=== PATIENT | female | born 1995 | race African-American/Black ===

== ENCOUNTER 2018-09-12 01:11 | Emergency (ER) | payer MEDICAID ==
[~2018-09-12] VITALS: Ht 160 cm; Wt 47.6 kg
[2018-09-12 01:16] VITALS: BP 121/77
--- NOTE | 2018-09-12 01:50 | NUR ---
PT AMBULATED TO BED #8
--- NOTE | 2018-09-12 02:20 | NUR ---
23 YO F BIB SELF PRESENTS TO ED C/O 09/01 SHARP RIGHT SIDE CHEST PAIN AND SOB SINCE THURSDAY. PT DENIES DIZZINESS, NVD, LIGHT HEADEDNESS, COUGH, RECENT INJURY OR RECENT ILLNESS. PT DENIES ALCOHOL OR RECREATIONAL DRUG USE. -- PT AWAKE, ALERT, CALM, COOPERATIVE. ANSWERS QUESTIONS APPROPRIATELY. PT IS PLAYING ON PHONE. -- SKIN NORMAL, WARM, DRY. BREATHING EVEN, UNLABORED. LUNGS CTA. SPO2 100% ON RA. NO INCREASED WOB NOTED. PMH-- DENIES RX-- DENIES
--- NOTE | 2018-09-12 02:50 | NUR ---
PT TAKEN TO XRAY VIA WC.
--- NOTE | 2018-09-12 02:57 | NUR ---
PT RETURNED FROM XRAY.
[2018-09-12 03:02] LABS: HEMOGLOBIN 12.6 g/dL (12.0-16.0); MEAN CORPUSCULAR HEMOGLOBIN 31 pg (27-31); MEAN CORPUSCULAR HGB CONC 34 g/dL (33-37); MEAN CORPUSCULAR VOLUME 92.5 fL (80-94); PLATELET COUNT (AUTO) 193 K/uL (140-450); RED CELL DISTRIBUTION WIDTH 13.1 % (11.6-13.7); WHITE BLOOD COUNT (AUTO) 3.8 K/uL (4.8-10.8)
[2018-09-12 03:10] LABS: ANION GAP 8.1 (8-16); CARBON DIOXIDE 27.8 mmol/L (21-32); CREATININE 0.8 mg/dL (0.6-1.3); POTASSIUM 3.9 mmol/L (3.5-5.1)
[2018-09-12 03:13] LABS: EOSINOPHILS % (MANUAL) 4 % (0-4); LYMPHOCYTES % (MANUAL) 53 % (20-46); MONOCYTES % (MANUAL) 3 % (5-12)
[2018-09-12 03:15] LABS: ALBUMIN 3.3 g/dL (3.4-5.0); TOTAL BILIRUBIN 0.3 mg/dL (0.0-1.0)
--- NOTE | 2018-09-12 03:51 | NUR ---
pt ambulated to bathroom
[2018-09-12] MEDS ORDERED: FAMOTIDINE 20 MG TAB PO ONE (04:10)
[2018-09-12] MEDS ORDERED: ALUMINUM HYD/MAG/SIMETHICONE 30 ML UDC PO ONE (04:10)
[2018-09-12] MEDS ORDERED: LIDOCAINE VISCOUS 2% 20 ML UDC PO ONE (04:10)
--- NOTE | 2018-09-12 04:30 | NUR ---
PT STATES SHE FEELS BETTER. DENIES SOB AT THIS TIME. REPORTS 2/10 CHEST DISCOMFORT.
[2018-09-12 04:45] VITALS: BP 113/76
--- NOTE | 2018-09-12 04:45 | NUR ---
Patient discharged with v/s stable. Written and verbal after care instructions given and explained. Patient verbalized understanding. Ambulatory with steady gait. All questions addressed prior to discharge. Advised to follow up with PMD.
== END 2018-09-12 04:45 | disposition home or self-care (01) ==
LOC: MED 01:11
DX: R07.89 Other chest pain (principal); R06.02 Shortness of breath
CPT/HCPCS: 36415; 71046; 80053; 81025; 83690; 85025; 93005; 99284; Q0092; 10080; 96372

== ENCOUNTER 2019-10-25 17:10 | Emergency (ER) | payer MEDICAID ==
[~2019-10-25] VITALS: Ht 157.5 cm; Wt 45.4 kg
[2019-10-25 17:23] VITALS: BP 103/78
--- NOTE | 2019-10-25 17:30 | NUR ---
PT C/O ASHLYN EYE REDNESS SINCE YESTERDAY AND WORSENED TODAY S/P EYELASH EXTENSIONS ON LAST THURSDAY. PT DENIES ITCHINESS, PAIN, TEARING, OR BLURRY VISION, BUT FOREIGN BODY SENSATION ON THE RT EYE. PT ALSO DENIES COUGH, LIFTING HEAVY STUFF, CONSTIPATION. DENIES ANY COVID-19 RELATED SX OR SICK CONTACTS. REPORTS 16 WEEKS OF . DELIO: 04/12/2020, A0. OS:20/20 OD: 20/20 OU: 20/20
[2019-10-25] MEDS ORDERED: DOPPLER MC ONE ×3 (17:37→17:53)
[2019-10-25] MEDS ORDERED: TETRACAINE HCL/PF 0.5% OPTH 4 ML BTL OP ONE (17:50)
[2019-10-25] MEDS ORDERED: FLUORESCEIN OPTH STRIP 1 MG OP ONE (17:50)
[2019-10-25] MEDS ORDERED: BACITRACIN OINT 500 UNITS/GM PKT TP ONE ×2 (18:14→18:15)
[2019-10-25 18:39] VITALS: BP 101/75
--- NOTE | 2019-10-25 18:39 | NUR ---
Patient discharged with v/s stable. Written and verbal after care instructions given and explained. Patient alert, oriented and verbalized understanding of instructions. Ambulatory with steady gait. All questions addressed prior to discharge. ID band removed. Patient advised to follow up with PMD. Rx of ERYTHROMYCIN OINTMENT given. Patient educated on indication of medication including possible reaction and side effects. Opportunity to ask questions provided and answered.
== END 2019-10-25 18:39 | disposition home or self-care (01) ==
LOC: MED 17:10
DX: S05.01XA Injury of conjunctiva and corneal abrasion without foreign body, right eye, initial encounter (principal); H11.32 Conjunctival hemorrhage, left eye; X58.XXXA Exposure to other specified factors, initial encounter; Y93.89 Activity, other specified; Y92.89 Other specified places as the place of occurrence of the external cause; Y99.8 Other external cause status
CPT/HCPCS: 99283; 99284

== ENCOUNTER 2020-10-19 20:04 | Emergency (ER) | payer MEDICAID ==
[~2020-10-19] VITALS: Ht 160 cm; Wt 49.9 kg
[2020-10-19 20:15] VITALS: BP 116/73
--- NOTE | 2020-10-19 20:15 | NUR ---
TO BED AMBULATORY
--- NOTE | 2020-10-19 20:32 | NUR ---
25 YO/F BIB SELF W CO CONSTANT LOWER ABDOMINAL/PELVIC SHARP PAIN /10 WORSENS W TOUCH OR PRESSURE AND HEAVY BLEEDING W CLOTS S/P TAKING MEDICATION X10 DAYS FOR . PATIENT REPORTS BLEEDING STARTED LIGHTLY BUT BECAME HEAVY TODAY W BLOOD CLOTS SINCE 1830, REPORTS SOAKING X1 PAD AN HOUR W BLOOD. PATIENT DENIES DIZZINESS, N/V, OR URINARY PROBLEMS. LMP 08/25/20. BOWEL SOUNDS PRESENT, ABDOMEN TENDER TO TOUCH. PATIENT LAYING IN BED, HOB ELEVATED, BED LOCKED IN LOWEST POSITION, X1 SIDERAIL UP. BREATHING EVEN AND UNLABORED. NAD NOTED, WILL CONTINUE TO MONITOR. PMH:DENIES NKA
--- NOTE | 2020-10-19 20:51 | NUR ---
Patient being evaluated by physician at bedside.
[2020-10-19] MEDS ORDERED: MORPHINE SULFATE 4 MG/ML SYR IVP ONE (20:55)
--- NOTE | 2020-10-19 21:05 | NUR ---
PATIENT REPORTS SHE IS DRIVING. ERMD MADE AWARE FOR CHANGE OF ORDER OF MORPHINE FOR PAIN. PATIENT DENIES NAUSEA AND REFUSED ZOFRAN AT THIS TIME.
--- NOTE | 2020-10-19 21:14 | NUR ---
US AT BEDSIDE.
--- NOTE | 2020-10-19 21:20 | NUR ---
ULTRASOUND AT BEDSIDE.
[2020-10-19 21:21] LABS: BASOPHILS % (AUTO) 0.3 % (0.0-2.0); EOSINOPHILS # (AUTO) 0.1 K/uL (0-0.4); EOSINOPHILS % (AUTO) 1.8 % (0.0-4.0); HEMOGLOBIN 10.2 g/dL (12.0-16.0); LYMPHOCYTES # (AUTO) 1.4 K/uL (2.5-16.5); LYMPHOCYTES % (AUTO) 19.6 % (20.5-51.1); MEAN CORPUSCULAR HEMOGLOBIN 28 pg (27-31); MEAN CORPUSCULAR HGB CONC 33 g/dL (33-37); MEAN CORPUSCULAR VOLUME 86.7 fL (80-94); MONOCYTES # (AUTO) 0.3 K/uL (0.8-1.0); MONOCYTES % (AUTO) 4.5 % (1.7-9.3); NEUTROPHILS # (AUTO) 5.4 K/uL (1.8-7.7); NEUTROPHILS % (AUTO) 73.8 % (42.2-75.2); PLATELET COUNT (AUTO) 304 K/uL (140-450); RED BLOOD CELL COUNT(AUTO) 3.57 MIL/uL (4.20-5.40); RED CELL DISTRIBUTION WIDTH 15.9 % (11.6-13.7); WHITE BLOOD COUNT (AUTO) 7.2 K/uL (4.8-10.8)
[2020-10-19] MEDS: KETOROLAC 30 MG/ML VIAL IVP ONE (21:31)
[2020-10-19] MEDS: NACL 0.9% 1,000 ML IV ONE (21:31)
[2020-10-19] MEDS: ONDANSETRON 4 MG/2 ML VIAL IVP ONE (21:32)
[2020-10-19 21:35] LABS: BILIRUBIN,URINE NEGATIVE (NEGATIVE); BLOOD, URINE 3+ (NEGATIVE); LEUKOCYTE ESTERASE ,URINE 1+ (NEGATIVE); NITRITE, URINE NEGATIVE (NEGATIVE); PH,URINE 8.5 (5.0-9.0); UGLUCOSE NEGATIVE (NEGATIVE)
[2020-10-19 21:37] LABS: PROTHROMBIN TIME 10.1 secs (10.8-13.4)
[2020-10-19 21:37] LABS: APPEARANCE,URINE BLOODY (CLEAR); COLOR,URINE RED (YELLOW)
[2020-10-19 21:38] LABS: ALBUMIN 3.7 g/dL (3.4-5.0); ANION GAP 10.2 (8-16); CARBON DIOXIDE 27.5 mmol/L (21-32); CREATININE 0.7 mg/dL (0.6-1.3); POTASSIUM 3.7 mmol/L (3.5-5.1); TOTAL BILIRUBIN 0.4 mg/dL (0.0-1.0)
[2020-10-19 21:38] LABS: RBC,URINE TOO NUMEROUS TO COUN /HPF (0-5)
--- NOTE | 2020-10-19 22:30 | NUR ---
PATIENT REPORTS PAIN IMPROVEMENT TO 6/10 .
[2020-10-19] MEDS ORDERED: NAPR-54 PO (22:37)
[2020-10-19 22:48] VITALS: BP 113/72
--- NOTE | 2020-10-19 22:48 | NUR ---
Patient discharged with v/s stable BY . Written and verbal after care instructions given and explained BY . Patient alert, oriented and verbalized understanding of instructions. Ambulatory with steady gait. All questions addressed prior to discharge BY . ID band removed. Patient advised to follow up with PMD. Rx of NAPROXEN given BY . Patient educated on indication of medication including possible reaction and side effects BY . Opportunity to ask questions provided and answered BY .
== END 2020-10-19 22:48 | disposition home or self-care (01) ==
LOC: MED 20:04
DX: O03.9 Complete or unspecified spontaneous abortion without complication (principal); Z3A.01 Less than 8 weeks gestation of pregnancy
CPT/HCPCS: 36415; 76856; 80053; 81001; 85025; 85610; 85730; 86900; 86901; 87086; 96361; 96374; 99284; J1885; J7030; 96375; J2270; J2405; Q0092

== ENCOUNTER 2022-10-12 06:22 | Emergency (ER) | payer MEDICAID ==
[~2022-10-12] VITALS: Ht 160 cm; Wt 49.9 kg
[~2022-10-12 06:22] MED LIST: NAPR-54 PO
[2022-10-12 06:25] VITALS: BP 126/89; PULSE 87; RESP 18; TEMP 98; O2SAT 100
[2022-10-12 07:25] LABS: APPEARANCE,URINE CLEAR (CLEAR); BILIRUBIN,URINE NEGATIVE (NEGATIVE); BLOOD, URINE NEGATIVE (NEGATIVE); COLOR,URINE YELLOW (YELLOW); LEUKOCYTE ESTERASE ,URINE 1+ (NEGATIVE); NITRITE, URINE NEGATIVE (NEGATIVE); PH,URINE 6.5 (5.0-9.0); PROTEIN,URINE NEGATIVE (NEGATIVE); UGLUCOSE NEGATIVE (NEGATIVE)
[2022-10-12 07:38] LABS: BACTERIA,URINE 10-30 (MOD) /HPF (None Seen); RBC,URINE 0-5 /HPF (0-5); SQUAMOUS EPITHELIAL CELL,UR 4-10 (MOD) /LPF (0-3 (FEW))
[2022-10-12] MEDS ORDERED: cephALEXin 500 MG CAP PO ONE (09:10)
[2022-10-12] MEDS ORDERED: METR-435 PO (09:10)
[2022-10-12] MEDS ORDERED: CEPH-588 PO (09:10)
[2022-10-12] MEDS ORDERED: metroNIDAZOLE 250 MG TAB PO ONE (09:10)
[2022-10-12 09:33] VITALS: BP 122/82; PULSE 80; RESP 18; TEMP 98; O2SAT 100
== END 2022-10-12 09:33 | disposition home or self-care (01) ==
LOC: MED 06:22
DX: N39.0 Urinary tract infection, site not specified (principal); N76.0 Acute vaginitis; B96.89 Other specified bacterial agents as the cause of diseases classified elsewhere; Z79.899 Other long term (current) drug therapy; Z90.49 Acquired absence of other specified parts of digestive tract
CPT/HCPCS: 81001; 81025; 87086; 87210; 87491; 99283